=== PATIENT | female | born 1945 | race Caucasian/White ===

== ENCOUNTER 2017-08-13 16:13 | Outpatient (CLI) | payer MEDICARE, BC | END 2017-08-13 16:14 | disposition home or self-care (01) | LOC: BICMAMMO 16:13 | PROVIDERS: ATTEND Specialist | DX: Z12.31 Encounter for screening mammogram for malignant neoplasm of breast (principal) | CPT/HCPCS: 77067; G0202 ==

== ENCOUNTER 2020-05-27 18:38 | Outpatient (CLI) | payer MEDICARE, BC ==
--- NOTE | 2020-05-27 19:01 | RAD ---
Frontal radiograph chest 4 views of right RIBS: 05/27/2020 COMPARISON: None HISTORY: Right lower anterior rib pain FINDINGS: Frontal radiograph chest demonstrates no pneumothorax, focal consolidation, or alveolar kavon ma. The left lung base is not fully imaged. Clips in the right upper quadrant suggest prior cholecystectomy. No displaced right-sided rib fracture is seen. IMPRESSION: No acute findings.
== END 2020-05-27 18:39 | disposition home or self-care (01) ==
LOC: SCSRAD 18:38
DX: R07.81 Pleurodynia (principal)

== ENCOUNTER 2020-06-10 08:24 | Outpatient (CLI) | payer MEDICARE, BC ==
--- NOTE | 2020-06-10 14:21 | CT ---
CT OF THE CHEST WITHOUT CONTRAST: 06/10/20 HISTORY: Mass under her lower right ribs. TECHNIQUE: Multiple contiguous axial images were obtained in a CT of the chest without contrast. Sagittal and co alec reformats were performed. FINDINGS: No suspicious pulmonary nodule are seen. No pneumothorax or pleural effusion are seen. The patient is status post cholecystectomy. The visualized subdiaphragmatic structures are unremarkab le. Degenerative changes are seen in the spine. A marker is placed at the area of palpable abnormality along the right lower chest/abdominal wall. No rmal appearing abdominal musculature is seen at the area of palpable abnormality. No mass or fluid co llection is seen in this location, but evaluation is limited without IV contrast. There may be slight subtle stranding change in the fat planes between the abdominal musculature in this location. IMPRESSION: No definite abdominal mass or fluid collection identified. There may be subtle inflammatory change in the fat planes between the abdominal musculature at the area of palpable abnormality which could rep resent an inflammatory process such as an infection. POS: EAA
== END 2020-06-10 08:25 | disposition home or self-care (01) ==
LOC: SCSCT 08:24
PROVIDERS: ATTEND Internal Medicine Endocrinology, Diabetes & Metabolism
DX: R22.2 Localized swelling, mass and lump, trunk (principal)
CPT/HCPCS: 71250

== ENCOUNTER 2020-08-11 14:12 | Outpatient (CLI) | payer MEDICARE, BC ==
--- NOTE | 2020-08-11 14:30 | RAD ---
XR Chest Pa Lat STANDARD HISTORY: Dyspnea COMPARISON: None FINDINGS: The heart size is normal. The aorta is tortuous. The lungs are well expanded without focal areas of consolidation, pneumothorax or pleural effusions. IMPRESSION: No radiographic evidence of acute cardiopulmonary process.
== END 2020-08-11 14:13 | disposition home or self-care (01) ==
LOC: SCSRAD 14:12
PROVIDERS: ATTEND Specialist
DX: R06.00 Dyspnea, unspecified (principal)
CPT/HCPCS: 71046

== ENCOUNTER 2020-11-03 11:58 | Outpatient (CLI) | payer MEDICARE, BC ==
--- NOTE | 2020-11-03 13:03 | RAD ---
EXAM: Chest 2 views: HISTORY: Dyspnea COMPARISON: 08/11/2020 FINDINGS: There is a normal-sized cardiomediastinal silhouette. There is no evidence of consolidation, mass, or pleural effusion. No acute osseous abnormality. IMPRESSION: No evidence of acute cardiopulmonary disease
== END 2020-11-03 11:59 | disposition home or self-care (01) ==
LOC: BICRAD 11:58
PROVIDERS: ATTEND Internal Medicine Pulmonary Disease
DX: R06.00 Dyspnea, unspecified (principal)
CPT/HCPCS: 71046

== ENCOUNTER 2025-05-12 13:35 | Outpatient (CLI) | payer MEDICARE, BC | END 2025-05-12 13:36 | disposition home or self-care (01) | LOC: SCSRAD 13:35 | PROVIDERS: ATTEND Internal Medicine | DX: R06.09 Other forms of dyspnea (principal) | CPT/HCPCS: 71046 ==